=== PATIENT | female | born 1935 ===

== ENCOUNTER 2017-09-29 20:20 | Emergency (ER) | payer MEDICARE, MEDICAID ==
[2017-09-29 20:33] VITALS: BMI 21.5
[2017-09-29] MEDS ORDERED: Albuterol-Ipratrop 3 mg / 0.5 (3 ml) UD ONE ×3 (20:33→21:58)
[2017-09-29 20:35] VITALS: TEMP 97.8
[2017-09-29] MEDS ORDERED: Albuterol-Ipratrop 3 mg / 0.5 (3 ml) UD INH STA ×3 (20:36→21:29)
--- NOTE | 2017-09-29 20:59 | ED PDOC ---
HPI: SOB/CHF/COPD <Anabela Ruano - Last Filed: 09/29/17 23:37> History Per: Patient, Family (Son and Daughter) History/Exam Limitations: language barrier (south korean) Onset/Duration Of Symptoms: Days (2) Current Symptoms Are (Timing): Still Present Initiating Event: Exercising/Sports (Walking outdoors) Quality: Tightness Exacerbating Factor(s): Coughing Severity: Moderate Associated Symptoms: Productive Cough Additional History Per: Family <Shawn Shearer - Last Filed: 09/29/17 23:52> Time Seen by Provider: 09/29/17 20:31 Chief Complaint (Nursing): Respiratory Distress Additional Complaint(s): Ms. Beck is a pleasant 82 yo lady with pmhx of asthma, htn, and multiple bouts of pna and bronchitis presents to the ED with asthma exacerbation. Per her son and daughter, she has been coughing with SOB for the past 2 days. However, today her symptoms have not improved after 3 nebulized albuterol treatments. Treatments were given at 9 am, 12 noon and 3 pm. Cough with brown sputum production noted. No recent illness or fevers. She denies nausea, vomiting or chest pain. PCP: [facility] Dr. Oscar PmHx: Asthma, htn, dementia, hypothyroid, pna, bronchitis Surg: none FamHx: DM NKDA: (Shawn Shearer) Supervising Attending Note - Supervising Attending Note The Documented history was done by the: Physician Construction Job Titles, Attending Physician The documented physical exam was done by the: Physician Construction Job Titles, Attending Physician The documented procedures were done by the: Physician Construction Job Titles, Attending Physician - Attestation: I have personally seen and examined this patient.: Yes I have fully participated in the care of the patient.: Yes I have reviewed all pertinent clinical information, including history, physical exam and plan: Yes <Anabela Ruano - Last Filed: 09/29/17 23:37> Past Medical History <Anabela Ruano - Last Filed: 09/29/17 23:37> - Medical History PMH: Asthma, Bronchitis, Dementia, Depression, HTN, Hypercholesterolemia, Hypothyroidism, Parkinson's Disease, Pneumonia Denies: Atrial Fibrillation, CAD, Cardia Arrhythmia, CHF, HIV, Mitral Valve Prolapse, Peripheral Edema, Chronic Kidney Disease - Surgical History Surgical History: Denies: Pacemaker - Family History Family History: States: Unknown Family Hx - Immunization History Hx Tetanus Toxoid Vaccination: No Hx Influenza Vaccination: No Hx Pneumococcal Vaccination: No <Bill Shearerang - Last Filed: 09/29/17 23:52> Vital Signs: Last Vital Signs Temp 97.8 F 09/29/17 20:32 Pulse 69 09/29/17 23:19 Resp 18 09/29/17 23:19 BP 109/59 L 09/29/17 23:19 Pulse Ox 95 09/29/17 23:19 - Home Medications Home Medications: Ambulatory Orders Medication Instructions Recorded Albuterol 0.083% [Albuterol 0.083% 3 ml IH Q4H PRN 10/19/16 Inhal Nely (2.5 mg/3 ml) UD] Albuterol Sulfate [Proair Hfa] 2 puff IH Q4H PRN 10/19/16 Atorvastatin [Lipitor] 20 mg PO DAILY 10/19/16 Donepezil [Aricept] 10 mg PO DAILY 10/19/16 Fluticasone/Salmeterol 100/50 1 puff IH Q12H 10/19/16 [Advair Diskus 100/50] Levothyroxine [Synthroid] 100 mcg PO DAILY 10/19/16 Metoprolol Succinate [Toprol XL] 25 mg PO DAILY #30 tab 10/27/16 QUEtiapine [Seroquel] 12.5 mg PO TID PRN #10 tab 10/27/16 predniSONE [predniSONE Tab] 60 mg PO DAILY 5 Days #5 tab 09/29/17 - Allergies Allergies/Adverse Reactions: Allergies Allergy/AdvReac Type Severity Reaction Status Date / Time No Known Allergies Allergy Verified 10/24/16 16:35 Curb-65 Severity Score - CURB-65 Severity Score Confusion: Yes Respiratory Rate greater than/equal to 30: No Systolic BP <90 or Diastolic BP less than/equal 60mmHg: No Age >64: Yes Curb-65 Score: 2 Percentage 30-day mortality: 6.8% <Shawn Shearer - Last Filed: 09/29/17 23:52> Review of Systems ROS Statement: Except As Marked, All Systems Reviewed And Found Negative Respiratory: Positive for: Cough, Shortness of Breath, SOB with Exertion, Sputum <Bill Shearerang - Last Filed: 09/29/17 23:52> Physical Exam - Physical Exam Appears: Positive for: Uncomfortable, In Acute Distress Skin: Positive for: Warm, Dry Eye Exam: Positive for: EOMI. Negative for: Nystagmus ENT: Positive for: Pharynx Is Cardiovascular/Chest: Positive for: Regular Rate, Rhythm, Chest Non Tender. Negative for: JVD Respiratory: Positive for: Decreased Breath Sounds, Accessory Muscle Use, Crackles (on all lung barba), Wheezing (expiratory on all lung barba), Respiratory Distress Gastrointestinal/Abdominal: Positive for: Bowel Sounds, Soft. Negative for: Tenderness Neurologic/Psych: Positive for: Alert. Negative for: Aphasia <Shawn Shearer - Last Filed: 09/29/17 23:52> - Laboratory Results Result Diagrams: 09/29/17 21:26 09/29/17 21:26 <Anabela Ruano - Last Filed: 09/29/17 23:37> - Laboratory Results Result Diagrams: 09/29/17 21:26 09/29/17 21:26 - ECG ECG: Positive for: Viewed By Me ECG Rhythm: Positive for: Normal QRS, Normal ST Segment, Sinus Rhythm Interpretation Of Abn EKG: Rate 69 bpm. light L Ventricular hypertrophy oberved in Leads V4-6 Rate: 69 O2 Sat by Pulse Oximetry: 91 <Shawn Shearer - Last Filed: 09/29/17 23:52> - ECG Interpretation Of Abnormal: slight hypoxia (Shawn Shearer) - Progress ED Course And Treament: L lower lobe consolidation noted on CXR: Ordered CT chest and BNP (Shawn Shearer) Nebulizer Treatments/Peak Flow - Steroid Treatment Steroid: IV - Clinical Response Clinical Response: Improved <Shawn Shearer - Last Filed: 09/29/17 23:52> Disposition <Anabela Ruano - Last Filed: 09/29/17 23:37> - Patient ED Disposition Is Patient to be Admitted: No Discussed With : Anabela Ruano Comment: O2 sat on RA while at rest was 97% after ambulating, 91%. DC home with po prednisone 60 mg qd x 5 days. Continue with nebulized abuterol, pump, and advair disc as prescribed. - Disposition Disposition Time: 23:45 <Shawn Shearer - Last Filed: 09/29/17 23:52> - Clinical Impression Clinical Impression: Asthma exacerbation - Disposition Condition: STABLE Prescriptions: predniSONE [predniSONE Tab] 60 mg PO DAILY 5 Days #5 tab Forms: [employer] (Nicaraguan)
[2017-09-29 21:32] LABS: BASO # 0.1 K/uL (0.0-0.2); EOS # 0.6 K/uL (0.0-0.7); EOS % 8.4 % (0.0-4.0); HEMOGLOBIN 12.5 g/dL (12.0-16.0); LYMPH # 1.4 K/uL (1.0-4.3); LYMPH % 20.6 % (20.0-40.0); MEAN CELL VOLUME 83.3 fl (81.0-99.0); MEAN CORPUSCULAR HGB CONC 32.4 g/dL (33.0-37.0); MONO # 0.5 K/uL (0.0-0.8); MONO % 7.5 % (0.0-10.0); NEUT # 4.2 K/uL (1.8-7.0); NEUT % 62.5 % (50.0-75.0); NRBC % 0.1 % (0.0-0.0); RBC 4.64 Mil/uL (3.80-5.20); RED CELL DISTRIBUTION WIDTH 13.9 % (11.5-14.5); WHITE BLOOD COUNT 6.7 K/uL (4.8-10.8)
[2017-09-29 21:42] LABS: BLOOD UREA NITROGEN 17 mg/dl (7-17); CALCIUM 9.2 mg/dL (8.4-10.2); GFR AFRICAN-AMERICAN > 60; GFR NON-AFRICAN AMERICAN > 60
[2017-09-29 22:08] VITALS: PULSE 69
--- NOTE | 2017-09-29 23:13 | CT ---
EXAM: CT Chest Without Intravenous Contrast EXAM DATE/TIME: 09/29/2017 9:53 PM CLINICAL HISTORY: 82 years old, female; Signs and symptoms; Dyspnea; Additional info: Dyspnea pleral effusion TECHNIQUE: Axial computed tomography images of the chest without intravenous contrast. All CT scans at this facility use one or more dose reduction techniques, viz.: automated exposure control; ma/kV adjustment per patient size (including targeted exams where dose is matched to indication; i.e. head); or iterative reconstruction technique. Coronal and sagittal reformatted images were created and reviewed. COMPARISON: There are no prior studies for comparison. FINDINGS: Artifacts: Motion artifact degrades image quality. Lungs and pleural spaces: Trachea and main bronchi are patent.There is no pneumothorax. Lungs are mildly hyperinflated. There is focal scarring in the middle lobe and lingula. There is atelectasis and scarring at both lung bases. There are no effusions. Heart and vasculature: The heart is mildly enlarged. There are coronary artery calcifications. There is no pericardial effusion. Aorta is normal in caliber. There are calcifications in the aortic wall. Main pulmonary artery is mildly dilated 3.5 cm in diameter. Mediastinum: The esophagus is unremarkable. There is a small hiatal hernia. There are shotty mediastinal nodes.Shelby are not optimally evaluated without contrast material. Thyroid: Thyroid is not optimally demonstrated. Bones/joints: Bony structures are osteopenic with degenerative change Soft tissues: unremarkable Upper abdomen: There are no acute abnormalities in the visualized portion of the abdomen. Gallbladder is absent. IMPRESSION: Mild cardiomegaly and atherosclerotic disease; atelectasis/scarring at the lung bases, no focal consolidation, no effusions
[2017-09-29 23:20] VITALS: BP 109/59
[2017-09-30 00:08] VITALS: RESP 20; O2SAT 97
--- NOTE | 2017-09-30 10:38 | CARD ---
APPROVED REPORT EKG Measurement Heart [id number] <Conclusion> Normal sinus rhythm Left axis deviation Abnormal ECG
--- NOTE | 2017-09-30 13:47 | RAD ---
PROCEDURE: CHEST RADIOGRAPH, 1 VIEW HISTORY: asthma exacerbation COMPARISON: 10/24/2016 FINDINGS: LUNGS: Linear scar/atelectasis at left base. No infiltrate. PLEURA: No pneumothorax or pleural fluid seen. CARDIOVASCULAR: Normal. OSSEOUS STRUCTURES: No significant abnormalities. VISUALIZED UPPER ABDOMEN: Normal. OTHER FINDINGS: None. IMPRESSION: No active disease.
== END 2017-09-30 00:08 | disposition home or self-care (01) ==
LOC: H.ER 20:20
DX: J45.901 Unspecified asthma with (acute) exacerbation (principal); E03.9 Hypothyroidism, unspecified; E78.00 Pure hypercholesterolemia, unspecified; F03.90 Unspecified dementia, unspecified severity, without behavioral disturbance, psychotic disturbance, mood disturbance, and anxiety; F32.9 Major depressive disorder, single episode, unspecified; I10 Essential (primary) hypertension; J44.9 Chronic obstructive pulmonary disease, unspecified
CPT/HCPCS: 71010; 71250; 80048; 83880; 85025; 93005; 94640; 96374; 99283; J2930

== ENCOUNTER 2017-10-14 11:34 | Emergency (ER) | payer MEDICARE, MEDICAID ==
[2017-10-14 11:35] VITALS: BMI 21.5
[2017-10-14 11:51] VITALS: BP 98/55; PULSE 72; RESP 16; TEMP 98.4
[2017-10-14] MEDS ORDERED: Albuterol-Ipratrop 3 mg / 0.5 (3 ml) UD IH STA ×2 (12:00→12:01)
--- NOTE | 2017-10-14 12:04 | ED PDOC ---
HPI: SOB/CHF/COPD Time Seen by Provider: 10/14/17 11:53 Chief Complaint (Nursing): Cough, Cold, Congestion History Per: Family Onset/Duration Of Symptoms: Days (2) Current Respiratory Medications: See Home Med List Severity: Mild Associated Symptoms: Fever Additional Complaint(s): SOB and cough productive green sputum since last night. Subjective fever. Tx'ed with Nebs. Past Medical History Vital Signs: Last Vital Signs Temp 98.4 F 10/14/17 11:39 Pulse 72 10/14/17 11:39 Resp 16 10/14/17 11:39 BP 98/55 L 10/14/17 11:39 Pulse Ox 92 L 10/14/17 12:04 - Medical History PMH: Asthma, Bronchitis, Dementia, Depression, HTN, Hypercholesterolemia, Hypothyroidism, Parkinson's Disease, Pneumonia Denies: Atrial Fibrillation, CAD, Cardia Arrhythmia, CHF, HIV, Mitral Valve Prolapse, Peripheral Edema, Chronic Kidney Disease - Surgical History Surgical History: Denies: Pacemaker - Family History Family History: States: Unknown Family Hx - Immunization History Hx Tetanus Toxoid Vaccination: No Hx Influenza Vaccination: No Hx Pneumococcal Vaccination: No - Home Medications Home Medications: Ambulatory Orders Medication Instructions Recorded Albuterol 0.083% [Albuterol 0.083% 3 ml IH Q4H PRN 10/19/16 Inhal Nely (2.5 mg/3 ml) UD] Albuterol Sulfate [Proair Hfa] 2 puff IH Q4H PRN 10/19/16 Atorvastatin [Lipitor] 20 mg PO DAILY 10/19/16 Donepezil [Aricept] 10 mg PO DAILY 10/19/16 Fluticasone/Salmeterol 100/50 1 puff IH Q12H 10/19/16 [Advair Diskus 100/50] Levothyroxine [Synthroid] 100 mcg PO DAILY 10/19/16 Metoprolol Succinate [Toprol XL] 25 mg PO DAILY #30 tab 10/27/16 QUEtiapine [Seroquel] 12.5 mg PO TID PRN #10 tab 10/27/16 Azithromycin [Zithromax] 250 mg PO DAILY #6 tab 10/14/17 Ipratropium 0.02% [Atrovent] 2.5 ml IH Q12 #1 neb 10/14/17 Omeprazole 20 mg PO DAILY 10/14/17 amLODIPine [Norvasc] 5 mg PO DAILY 10/14/17 predniSONE [predniSONE Tab] 10 mg PO TID #15 tab 10/14/17 - Allergies Allergies/Adverse Reactions: Allergies Allergy/AdvReac Type Severity Reaction Status Date / Time No Known Allergies Allergy Verified 10/14/17 12:28 Review of Systems ROS Statement: Except As Marked, All Systems Reviewed And Found Negative Respiratory: Positive for: Cough, Shortness of Breath, Sputum, Wheezing Physical Exam - Reviewed Nursing Documentation Reviewed: Yes Vital Signs Reviewed: Yes - Physical Exam Appears: Positive for: Non-toxic, No Acute Distress Head Exam: Positive for: ATRAUMATIC, NORMAL INSPECTION, NORMOCEPHALIC Skin: Positive for: Normal Color, Warm, DRY Eye Exam: Positive for: EOMI, Normal appearance, PERRL ENT: Positive for: Normal ENT Inspection Neck: Positive for: Normal, Painless ROM Cardiovascular/Chest: Positive for: Regular Rate, Rhythm Respiratory: Positive for: Decreased Breath Sounds, Wheezing. Negative for: Respiratory Distress Gastrointestinal/Abdominal: Positive for: Normal Exam, Bowel Sounds, Soft Back: Positive for: Normal Inspection Extremity: Positive for: Normal ROM Neurologic/Psych: Positive for: Alert. Negative for: Motor/Sensory Deficits - ECG O2 Sat by Pulse Oximetry: 92 - Progress Re-evaluation Time: 13:41 Condition: Improved Disposition - Clinical Impression Clinical Impression: Bronchitis, Exacerbation of asthma - Patient ED Disposition Is Patient to be Admitted: No Counseled Patient/Family Regarding: Studies Performed, Diagnosis, Need For Followup, Rx Given - Disposition Referrals: [facility] [Outside] Disposition: Routine/Home Disposition Time: 13:42 Condition: FAIR Prescriptions: Azithromycin [Zithromax] 250 mg PO DAILY #6 tab Ipratropium 0.02% [Atrovent] 2.5 ml IH Q12 #1 neb predniSONE [predniSONE Tab] 10 mg PO TID #15 tab Instructions: Acute Bronchitis (ED), Bronchospasm (ED) Forms: [facility] (Occitan) Print Language: BURMESE
[2017-10-14 13:55] VITALS: O2SAT 95
--- NOTE | 2017-10-14 14:24 | RAD ---
HISTORY: cough COMPARISON: Chest radiograph dated 09/29/2017. TECHNIQUE: Chest PA and lateral FINDINGS: LUNGS: No active pulmonary disease. PLEURA: No significant pleural effusion identified. No pneumothorax apparent. CARDIOVASCULAR: Atherosclerotic aortic calcifications. Cardiomediastinal silhouette within normal limits. OSSEOUS STRUCTURES: Unchanged. VISUALIZED UPPER ABDOMEN: Normal. OTHER FINDINGS: None. IMPRESSION: No active disease.
== END 2017-10-14 13:54 | disposition home or self-care (01) ==
LOC: H.ER 11:34
DX: J45.901 Unspecified asthma with (acute) exacerbation (principal); J40 Bronchitis, not specified as acute or chronic; E78.00 Pure hypercholesterolemia, unspecified; E03.9 Hypothyroidism, unspecified; F03.90 Unspecified dementia, unspecified severity, without behavioral disturbance, psychotic disturbance, mood disturbance, and anxiety; F32.9 Major depressive disorder, single episode, unspecified; I10 Essential (primary) hypertension; J44.9 Chronic obstructive pulmonary disease, unspecified
CPT/HCPCS: 71046; 94640; 96374; 99283; J2930

== ENCOUNTER 2019-01-13 13:40 | Inpatient (IN) | payer MEDICARE, MEDICAID ==
[2019-01-13 13:40] VITALS: BMI 21.5
[2019-01-13] MEDS ORDERED: Albuterol-Ipratrop 3 mg / 0.5 (3 ml) UD IH STA ×2 (14:03→15:36)
--- NOTE | 2019-01-13 14:08 | ED PDOC ---
HPI: SOB/CHF/COPD Time Seen by Provider: 01/13/19 13:56 Chief Complaint (Nursing): Shortness Of Breath History Per: EMS Onset/Duration Of Symptoms: Unknown Current Symptoms Are (Timing): Still Present Additional Complaint(s): Brought by EMS from Adult Day care for SOB and congestion. Denies fever or chest pain. Received IV steroids en route. Past Medical History Vital Signs: Last Vital Signs Temp Pulse Resp 20 01/13/19 13:53 BP Pulse Ox 97 01/13/19 13:53 - Medical History PMH: Asthma, Bronchitis, Dementia, Depression, HTN, Hypercholesterolemia, Hypothyroidism, Parkinson's Disease, Pneumonia Denies: Atrial Fibrillation, CAD, Cardia Arrhythmia, CHF, HIV, Mitral Valve Prolapse, Peripheral Edema, Chronic Kidney Disease - Surgical History Surgical History: Denies: Pacemaker - Family History Family History: States: Unknown Family Hx - Immunization History Hx Tetanus Toxoid Vaccination: No Hx Influenza Vaccination: No Hx Pneumococcal Vaccination: No - Home Medications Home Medications: Ambulatory Orders Medication Instructions Recorded Albuterol 0.083% [Albuterol 0.083% 3 ml IH Q4H PRN 10/19/16 Inhal Nely (2.5 mg/3 ml) UD] Albuterol Sulfate [Proair Hfa] 2 puff IH Q4H PRN 10/19/16 Atorvastatin [Lipitor] 20 mg PO DAILY 10/19/16 Donepezil [Aricept] 10 mg PO DAILY 10/19/16 Fluticasone/Salmeterol 100/50 1 puff IH Q12H 10/19/16 [Advair Diskus 100/50] Levothyroxine [Synthroid] 100 mcg PO DAILY 10/19/16 Metoprolol Succinate XL [Toprol XL] 25 mg PO DAILY #30 tab 10/27/16 QUEtiapine [Seroquel] 12.5 mg PO TID PRN #10 tab 10/27/16 Azithromycin [Zithromax] 250 mg PO DAILY #6 tab 10/14/17 Ipratropium 0.02% [Atrovent] 2.5 ml IH Q12 #1 neb 10/14/17 Omeprazole 20 mg PO DAILY 10/14/17 amLODIPine [Norvasc] 5 mg PO DAILY 10/14/17 predniSONE [predniSONE Tab] 10 mg PO TID #15 tab 10/14/17 - Allergies Allergies/Adverse Reactions: Allergies Allergy/AdvReac Type Severity Reaction Status Date / Time No Known Allergies Allergy Verified 01/13/19 13:44 Review of Systems ROS Statement: Except As Marked, All Systems Reviewed And Found Negative Respiratory: Positive for: Shortness of Breath Physical Exam - Reviewed Nursing Documentation Reviewed: Yes Vital Signs Reviewed: Yes - Physical Exam Appears: Positive for: Non-toxic, No Acute Distress Head Exam: Positive for: ATRAUMATIC, NORMAL INSPECTION, NORMOCEPHALIC Skin: Positive for: Normal Color, Warm, DRY Eye Exam: Positive for: EOMI, Normal appearance, PERRL ENT: Positive for: Normal ENT Inspection Neck: Positive for: Normal, Painless ROM Cardiovascular/Chest: Positive for: Regular Rate, Rhythm Respiratory: Positive for: Rhonchi, Wheezing. Negative for: Respiratory Distress Gastrointestinal/Abdominal: Positive for: Normal Exam, Soft Back: Positive for: Normal Inspection Extremity: Positive for: Normal ROM Neurological/Psych: Positive for: Awake, Alert, Normal Tone - ECG O2 Sat by Pulse Oximetry: 97 Disposition - Clinical Impression Clinical Impression: COPD (chronic obstructive pulmonary disease) - Patient ED Disposition Is Patient to be Admitted: Yes - Disposition Disposition Time: 15:40 Condition: FAIR Forms: [employer] (Kazakh) - Pt Status Changed To: Hospital Disposition Of: Observation - POA Present On Arrival: None
[2019-01-13] MEDS ORDERED: Albuterol-Ipratrop 3 mg / 0.5 (3 ml) UD ONE ×2 (14:59→16:05)
--- NOTE | 2019-01-13 15:37 | CP.PCM.HP ---
History of Present Illness - History of Present Illness History of Present Illness: History obtained from patient's hospice patient care secretary & previous notes 83 y/o F with pmhx of dementia, hypercholesterolemia, COPD, unspecified, hy pothyroidism, agitation & HTN was brought into the ED because of sob. As per the caregiver, the patient was at her day program when she noticed that Emma began breathing quickly. She endorses that the patient's oxygen saturation was checked and reported as low. Patient was then taken to ED and given IV steroids. PMH: dementia, hypercholesterolemia, COPD, unspecified, hypothyroidism, agitation & HTN Meds: metoprolol, amlodipine, levothyroxine, seroquel, advair, albuterol, atorvastatin, memantin, divalproex, donepezil Allergies: NKA Surghx: denies Famhx: noncontributory Sochx: denies etoh, elicit or cigarettes use ROS: unable to obtain bc patient has dementia ED course: VS: spo2-95% on room air BP- -s/p 2 doses of duonebs & 125 mg IV methylprednisolone in field ; EKG: NSR @ 75bpm -CMP: unremarkable (creatinine: 0.8), troponin & cbc- wbc 13.3 CXR- borderline disease midline right bases. Remaining lung barba clear. Present on Admission - Present on Admission Any Indicators Present on Admission: No Past Patient History - Infectious Disease Hx of Infectious Diseases: None - Tetanus Immunizations Tetanus Immunization: Unknown - Past Medical History & Family History Past Medical History?: Yes - Past Social History Smoking Status: Never Smoked - CARDIAC Hx Atrial Fibrillation: No Hx Cardia Arrhythmia: No Hx Congestive Heart Failure: No Hx Hypercholesterolemia: Yes Hx Hypertension: Yes Hx Mitral Valve Prolapse: No Hx Pacemaker: No Hx Peripheral Edema: No - PULMONARY Hx Asthma: Yes Hx Bronchitis: Yes Hx Pneumonia: Yes - NEUROLOGICAL Hx Dementia: Yes Hx Parkinson's Disease: Yes - HEENT Hx HEENT Problems: No - RENAL Hx Chronic Kidney Disease: No - ENDOCRINE/METABOLIC Hx Hypothyroidism: Yes - HEMATOLOGICAL/ONCOLOGICAL Hx Human Immunodeficiency Virus (HIV): No - INTEGUMENTARY Hx Dermatological Problems: No - MUSCULOSKELETAL/RHEUMATOLOGICAL Hx Musculoskeletal Disorders: No Hx Falls: No - GASTROINTESTINAL Hx Gastrointestinal Disorders: No - GENITOURINARY/GYNECOLOGICAL Hx Genitourinary Disorders: No - PSYCHIATRIC Hx Depression: Yes - SURGICAL HISTORY Hx Surgeries: Yes Hx Tubal Ligation: Yes - ANESTHESIA Hx Anesthesia: Yes Hx Anesthesia Reactions: No Hx Malignant Hyperthermia: No Meds Allergies/Adverse Reactions: Allergies Allergy/AdvReac Type Severity Reaction Status Date / Time No Known Allergies Allergy Verified 01/13/19 13:44 Physical Exam - Constitutional Additional comments: intermittent sneezing - Eye Exam Pupil Exam: PERRL - ENT Exam ENT Exam: Mucous Membranes Moist - Respiratory Exam Respiratory Exam: Rhonchi. absent: Rales, Respiratory Distress - Cardiovascular Exam Cardiovascular Exam: REGULAR RHYTHM, +S1, +S2 - GI/Abdominal Exam GI & Abdominal Exam: Normal Bowel Sounds, Soft. absent: Guarding, Rigid, Tenderness - Extremities Exam Extremities exam: Positive for: pedal pulses present. Negative for: calf tenderness - Neurological Exam Neurological exam: Alert - Psychiatric Exam Psychiatric exam: Agitated - Skin Skin Exam: Dry Results - Vital Signs Recent Vital Signs: Last Vital Signs Temp Pulse Resp 20 01/13/19 13:53 BP Pulse Ox 97 01/13/19 14:09 - Labs Result Diagrams: 01/13/19 15:35 01/13/19 15:35 Assessment & Plan - Assessment and Plan (Free Text) Assessment: 83 y/o F with pmhx of dementia, hypercholesterolemia, COPD, unspecified, hypothyroidism, agitation & HTN was brought into the ED because of sob. sob ( possibly due to mild COPD exacerbation) -s/p 125mg methylprednisolone IV in the field -CXR: neg for any infiltrate; first troponin neg -fu /3rd troponin -duoneb Q3 -methylprednisolone 60mg IV QD tomorrw; continue with daily taper -Advair 100-50mg 1 puff BID hx of COPD with possible mild exacerbation -see above HTN -metoprolol 50mg po QD -norvasc 5mg PO QD Hypothyroidism -FU TSH -levothyroxine 112mcg QD Hypercholesterolemia -Atorvastain 20mg PO QD Dementia -memantine 5mg pO HS -Divalproex 250mg PO -donepezil 10mg PO HS Agitaton -FU psych consult -Seroquel 25mg PO BID -Note that patient has only been getting BID because as per caregiver, day care facility cannot administer meds -Consider changing to TID (which she should be taking )as per ECW note
[2019-01-13 16:04] LABS: ALB/GLOB RATIO 1.2 (1.0-2.1); ALBUMIN 4.4 g/dL (3.5-5.0); ALT/SGPT 14 U/L (9-52); AST/SGOT 22 U/L (14-36); BLOOD UREA NITROGEN 17 mg/dl (7-17); CALCIUM 9.2 mg/dL (8.4-10.2); GFR NON-AFRICAN AMERICAN > 60
[2019-01-13 16:08] LABS: BASO % 0.4 % (0.0-2.0); EOS # 0.2 K/uL (0.0-0.7); EOS % 1.6 % (0.0-4.0); HEMOGLOBIN 13.9 g/dL (12.0-16.0); LYMPH % 7.2 % (20.0-40.0); MEAN CELL VOLUME 84.9 fl (81.0-99.0); MEAN CORPUSCULAR HEMOGLOBIN 27.1 pg (27.0-31.0); MEAN PLATELET VOLUME 7.5 fl (7.2-11.7); MONO # 0.3 K/uL (0.0-0.8); MONO % 2.2 % (0.0-10.0); NEUT # 11.8 K/uL (1.8-7.0); NEUT % 88.6 % (50.0-75.0); PLATELET COUNT 264 K/uL (130-400); RBC 5.11 Mil/uL (3.80-5.20); RED CELL DISTRIBUTION WIDTH 15.1 % (11.5-14.5); WHITE BLOOD COUNT 13.3 K/uL (4.8-10.8)
--- NOTE | 2019-01-13 16:42 | RAD ---
Date of service: 01/13/2019 HISTORY: cough COMPARISON: Chest radiographs 10/14/2017. TECHNIQUE: 1 view obtained. FINDINGS: LUNGS: Trace patchy density questioned at the mid right base in the interval. Remaining lung barba clear. PLEURA: No significant pleural effusion identified, no pneumothorax apparent. CARDIOVASCULAR: Calcific atherosclerotic changes are seen related to the thoracic aorta. Normal cardiac size. No pulmonary vascular congestion. OSSEOUS STRUCTURES: No significant abnormalities. VISUALIZED UPPER ABDOMEN: Normal. OTHER FINDINGS: None. IMPRESSION: Borderline airspace disease midline right base. Remaining lung barba clear. No pulmonary vascular congestion or pleural effusion. No pneumothorax bilaterally.
[2019-01-13 17:22] LABS: BANDS 4 % (0-2); EOSINOPHIL 3 % (0-7); LYMPHOCYTE 8 % (20-50); MONOCYTE 6 % (0-10); NEUTROPHIL 79 % (42-75); TOTAL CELLS COUNTED 100
[2019-01-13 17:23] LABS: HYPOCHROMIC SLIGHT; PLATELET ESTIMATE NORMAL (NORMAL); TOXIC GRANULATION PRESENT
[2019-01-13] MEDS: Albuterol-Ipratrop 3 mg / 0.5 (3 ml) UD INH SCH ×3 (18:16→23:59)
--- NOTE | 2019-01-13 19:17 | CARD ---
APPROVED REPORT Date of service: 01/13/2019 EKG Measurement Heart [id number] <Conclusion> Normal sinus rhythm Left axis deviation Incomplete right bundle branch block Abnormal ECG
[2019-01-13] MEDS ORDERED: Fluticasone-Salmeterol 100-50mcg Diskus IH SCH (21:00)
[2019-01-13] MEDS ORDERED: FLUTICASONE PROPION/SALMETEROL 113-14 IH SCH (23:00)
[2019-01-14] MEDS: FLUTICASONE PROPION/SALMETEROL 55-14 INHALER IH SCH ×3 (00:25→21:20)
[2019-01-14] MEDS: Albuterol-Ipratrop 3 mg / 0.5 (3 ml) UD INH SCH ×5 (05:02→19:50)
[2019-01-14] MEDS: Levothyroxine 112 MCG TAB PO SCH (06:38)
[2019-01-14] MEDS ORDERED: methylPREDNISolone 60 MG in Sodium Chloride 0.9% 50 ML IV SCH (09:00)
[2019-01-14] MEDS ORDERED: Divalproex 250 mg ER (ONCE DAILY formulation) PO SCH (09:00)
[2019-01-14] MEDS: Enoxaparin 40 mg Syringe SC SCH (09:49)
[2019-01-14] MEDS: Metoprolol Succinate 50 mg XL Tab PO SCH (09:51)
--- NOTE | 2019-01-14 10:07 | CP.PCM.PN ---
Subjective - Date & Time of Evaluation Date of Evaluation: 01/14/19 Time of Evaluation: 10:07 - Subjective Subjective: pt seen and evaluated at bedside. Overnight events reviewed. Remained agitated, given 2 doses of 0.25mg Ativan and placed on 1:1. Tolerating neb treatments w/o issue. Slept rest of the night. Objective - Vital Signs/Intake and Output Vital Signs (last 24 hours): Temp Pulse Resp BP Pulse Ox 97.5 F L 69 18 149/74 98 01/14/19 00:13 01/14/19 09:51 01/14/19 03:50 01/14/19 09:51 01/14/19 00:13 - Medications Medications: Current Medications Albuterol/Ipratropium (Duoneb 3 Mg/0.5 Mg (3 Ml) Ud) 3 ml INH RQ4 [facility] Last Admin: 01/14/19 08:21 Dose: 3 ml Amlodipine Besylate (Norvasc) 5 mg PO DAILY [facility] Last Admin: 01/14/19 09:49 Dose: 5 mg Atorvastatin Calcium (Lipitor) 20 mg PO DAILY [facility] Last Admin: 01/14/19 09:48 Dose: 20 mg Divalproex Sodium (Depakote Er(Once Daily)) 250 mg PO DAILY [facility] Last Admin: 01/14/19 09:48 Dose: 250 mg Donepezil HCl (Aricept) 10 mg PO HS [facility] Last Admin: 01/14/19 00:20 Dose: 10 mg Enoxaparin Sodium (Lovenox) 40 mg SC DAILY [facility]; Protocol Last Admin: 01/14/19 09:49 Dose: 40 mg Levothyroxine Sodium (Synthroid) 112 mcg PO DAILY@0630 [facility] Last Admin: 01/14/19 06:38 Dose: Not Given Memantine (Namenda) 5 mg PO HS [facility] Last Admin: 01/14/19 00:21 Dose: 5 mg Methylprednisolone (Solu-Medrol) 60 mg IV DAILY [facility] Metoprolol Succinate (Toprol Xl) 50 mg PO DAILY [facility] Last Admin: 01/14/19 09:51 Dose: 50 mg Pantoprazole Sodium (Protonix Ec Tab) 40 mg PO DAILY PRN PRN Reason: Heartburn Quetiapine Fumarate (Seroquel) 25 mg PO Q12 [facility] Last Admin: 01/14/19 09:50 Dose: 25 mg - Labs Labs: 01/13/19 15:35 01/13/19 15:35 - Constitutional Appears: Non-toxic, No Acute Distress - Head Exam Head Exam: ATRAUMATIC - Eye Exam Eye Exam: EOMI, PERRL - ENT Exam ENT Exam: Mucous Membranes Moist Additional comments: adentulous - Respiratory Exam Respiratory Exam: Rhonchi, Wheezes, NORMAL BREATHING PATTERN. absent: Decreased Breath Sounds, Clear to Ausculation Bilateral, Prolonged Expiratory Phase, Rales, Respiratory Distress, Stridor - Cardiovascular Exam Cardiovascular Exam: REGULAR RHYTHM, RRR, +S1, +S2. absent: JVD, Murmur - GI/Abdominal Exam GI & Abdominal Exam: Soft. absent: Tenderness - Extremities Exam Extremities Exam: absent: Pedal Edema - Skin Skin Exam: Dry, Warm Assessment and Plan - Assessment and Plan (Free Text) Assessment: 83 y/o F with pmhx of dementia, hypercholesterolemia, COPD, unspecified, hypothyroidism, agitation & HTN admitted for COPD exacerbation. COPD exacerbation -s/p 125mg methylprednisolone IV in the field -CXR: possible right midlung finding, otherwise unremarkable, no pneumothroax or effusion -duoneb Q4 -methylprednisolone 60mg BID -Advair 100-50mg 1 puff BID -maintain POX 92% Agitation -possibly secondary to COPD exacerbation -FU psych consult -Seroquel 25mg PO BID, resume TID 01/15 -f/u TSH -hold ativan, only for severe agitation -Note that patient has only been getting BID because as per caregiver, day care facility cannot administer meds HTN -controlled -metoprolol 50mg po QD -norvasc 5mg PO QD Hypothyroidism -FU TSH -levothyroxine 112mcg QD Hypercholesterolemia -Atorvastain 20mg PO QD Dementia -memantine 5mg pO HS -Divalproex 250mg PO -donepezil 10mg PO HS Prophylaxis -lovenox 40mg SC QD Diet -heart healthy Code Status -full code
[2019-01-14 15:16] LABS: BASO % 0.2 % (0.0-2.0); HEMOGLOBIN 12.3 g/dL (12.0-16.0); LYMPH # 0.4 K/uL (1.0-4.3); LYMPH % 2.8 % (20.0-40.0); MEAN CELL VOLUME 83.1 fl (81.0-99.0); MEAN CORPUSCULAR HEMOGLOBIN 27.3 pg (27.0-31.0); MEAN CORPUSCULAR HGB CONC 32.9 g/dL (33.0-37.0); MEAN PLATELET VOLUME 7.5 fl (7.2-11.7); MONO # 0.3 K/uL (0.0-0.8); MONO % 2.3 % (0.0-10.0); NEUT # 13.7 K/uL (1.8-7.0); NEUT % 94.7 % (50.0-75.0); NRBC % 0.1 % (0.0-0.0); PLATELET COUNT 267 K/uL (130-400); RBC 4.49 Mil/uL (3.80-5.20); RED CELL DISTRIBUTION WIDTH 14.7 % (11.5-14.5); WHITE BLOOD COUNT 14.4 K/uL (4.8-10.8)
--- NOTE | 2019-01-14 16:11 | CP.PCM.CON ---
History of Present Illness - History of Present Illness History of Present Illness: consult requested for episodes of agitation pt on evaluation twice has been sedated, unable to obtainn hx from her, hx obtained through chart review and staff members 83 y/o F with pmhx of dementia, hypercholesterolemia, COPD,, brought to ER for episode of difficulty breathing pt reportedly has been increasingly agitated, combative with care , possible delirium due to change of enviroment and also due to medical condition Past Patient History - Infectious Disease Hx of Infectious Diseases: None - Tetanus Immunizations Tetanus Immunization: Unknown - Past Medical History & Family History Past Medical History?: Yes - Past Social History Smoking Status: Unknown If Ever Smoked - CARDIAC Hx Cardiac Disorders: Yes Hx Atrial Fibrillation: No Hx Cardia Arrhythmia: No Hx Congestive Heart Failure: No Hx Hypercholesterolemia: Yes Hx Hypertension: Yes Hx Mitral Valve Prolapse: No Hx Pacemaker: No Hx Peripheral Edema: No - PULMONARY Hx Respiratory Disorders: Yes Hx Asthma: Yes Hx Bronchitis: Yes Hx Pneumonia: Yes - NEUROLOGICAL Hx Neurological Disorder: Yes Hx Dementia: Yes Hx Parkinson's Disease: Yes - HEENT Hx HEENT Problems: No - RENAL Hx Chronic Kidney Disease: No - ENDOCRINE/METABOLIC Hx Endocrine Disorders: Yes Hx Hypothyroidism: Yes - HEMATOLOGICAL/ONCOLOGICAL Hx Blood Disorders: No Hx Human Immunodeficiency Virus (HIV): No - INTEGUMENTARY Hx Dermatological Problems: No - MUSCULOSKELETAL/RHEUMATOLOGICAL Hx Musculoskeletal Disorders: No Hx Falls: No - GASTROINTESTINAL Hx Gastrointestinal Disorders: No - GENITOURINARY/GYNECOLOGICAL Hx Genitourinary Disorders: No - PSYCHIATRIC Hx Psychophysiologic Disorder: Yes Hx Depression: Yes Hx Substance Use: No - SURGICAL HISTORY Hx Surgeries: Yes Hx Tubal Ligation: Yes - ANESTHESIA Hx Anesthesia: Yes Hx Anesthesia Reactions: No Hx Malignant Hyperthermia: No Meds Allergies/Adverse Reactions: Allergies Allergy/AdvReac Type Severity Reaction Status Date / Time No Known Allergies Allergy Verified 01/13/19 13:44 - Medications Medications: Current Medications Albuterol/Ipratropium (Duoneb 3 Mg/0.5 Mg (3 Ml) Ud) 3 ml INH RQ4 [facility] Last Admin: 01/14/19 15:50 Dose: 3 ml Amlodipine Besylate (Norvasc) 5 mg PO DAILY [facility] Last Admin: 01/14/19 09:49 Dose: 5 mg Atorvastatin Calcium (Lipitor) 20 mg PO DAILY [facility] Last Admin: 01/14/19 09:48 Dose: 20 mg Divalproex Sodium (Depakote Er(Once Daily)) 250 mg PO DAILY [facility] Last Admin: 01/14/19 09:48 Dose: 250 mg Donepezil HCl (Aricept) 10 mg PO HS [facility] Last Admin: 01/14/19 00:20 Dose: 10 mg Enoxaparin Sodium (Lovenox) 40 mg SC DAILY [facility]; Protocol Last Admin: 01/14/19 09:49 Dose: 40 mg Levothyroxine Sodium (Synthroid) 112 mcg PO DAILY@0630 [facility] Last Admin: 01/14/19 06:38 Dose: Not Given Memantine (Namenda) 5 mg PO HS [facility] Last Admin: 01/14/19 00:21 Dose: 5 mg Methylprednisolone (Solu-Medrol) 60 mg IV BID [facility] Metoprolol Succinate (Toprol Xl) 50 mg PO DAILY [facility] Last Admin: 01/14/19 09:51 Dose: 50 mg Pantoprazole Sodium (Protonix Ec Tab) 40 mg PO DAILY PRN PRN Reason: Heartburn Quetiapine Fumarate (Seroquel) 25 mg PO Q12 [facility] Last Admin: 01/14/19 09:50 Dose: 25 mg Results - Vital Signs Recent Vital Signs: Last Vital Signs Temp 97.6 F 01/14/19 15:55 Pulse 75 01/14/19 15:55 Resp 18 01/14/19 15:55 BP 118/63 01/14/19 15:55 Pulse Ox 95 01/14/19 15:55 - Labs Result Diagrams: 01/14/19 14:35 01/13/19 15:35 Labs: Laboratory Results - last 24 hr 01/13/19 01/13/19 01/14/19 15:35 15:35 14:35 WBC 13.3 H D 14.4 H RBC 5.11 4.49 Hgb 13.9 12.3 Hct 43.4 37.3 MCV 84.9 83.1 MCH 27.1 27.3 MCHC 32.0 L 32.9 L RDW 15.1 H 14.7 H Plt Count 264 267 MPV 7.5 7.5 Neut % (Auto) 88.6 H 94.7 H Lymph % (Auto) 7.2 L 2.8 L [place] % (Auto) 2.2 2.3 Eos % (Auto) 1.6 0.0 Baso % (Auto) 0.4 0.2 Neut # (Auto) 11.8 H 13.7 H Lymph # (Auto) 1.0 0.4 L [place] # (Auto) 0.3 0.3 Eos # (Auto) 0.2 0.0 Baso # (Auto) 0.0 0.0 Neutrophils % (Manual) 79 H Band Neutrophils % 4 H Lymphocytes % (Manual) 8 L Monocytes % (Manual) 6 Eosinophils % (Manual) 3 Toxic Granulation Present Platelet Estimate Normal Hypochromasia (manual) Slight Troponin I < 0.0120 Free T4 TSH 3rd Generation 01/14/19 01/14/19 01/14/19 14:35 14:35 14:35 WBC RBC Hgb Hct MCV MCH MCHC RDW Plt Count MPV Neut % (Auto) Lymph % (Auto) [place] % (Auto) Eos % (Auto) Baso % (Auto) Neut # (Auto) Lymph # (Auto) [place] # (Auto) Eos # (Auto) Baso # (Auto) Neutrophils % (Manual) Band Neutrophils % Lymphocytes % (Manual) Monocytes % (Manual) Eosinophils % (Manual) Toxic Granulation Platelet Estimate Hypochromasia (manual) Troponin I < 0.0120 Free T4 1.22 TSH 3rd Generation 5.12 H Assessment & Plan - Assessment and Plan (Free Text) Assessment: delirium, hyperactive major neurocognitive disorder Plan: recommend to discontinue depakote 2520mg daily and start depakote 125 mg tid seroquel 12.5mg po qhs haldol 0.25mg q12 prn for agitation avoid ativan for fall risks and possible paradoxical reaction
[2019-01-14 18:30] LABS: ANISOCYTOSIS SLIGHT; BANDS 3 % (0-2); HYPOCHROMIC SLIGHT; LYMPHOCYTE 7 % (20-50); MICROCYTOSIS SLIGHT; MONOCYTE 4 % (0-10); NEUTROPHIL 86 % (42-75); PLATELET ESTIMATE NORMAL (NORMAL); TOTAL CELLS COUNTED 100
[2019-01-15] MEDS: Albuterol-Ipratrop 3 mg / 0.5 (3 ml) UD INH SCH ×7 (00:35→23:51)
[2019-01-15 05:59] LABS: HEMOGLOBIN 12.8 g/dL (12.0-16.0); MEAN CELL VOLUME 83.7 fl (81.0-99.0); MEAN CORPUSCULAR HGB CONC 32.2 g/dL (33.0-37.0); RBC 4.75 Mil/uL (3.80-5.20); RED CELL DISTRIBUTION WIDTH 14.7 % (11.5-14.5); WHITE BLOOD COUNT 16.8 K/uL (4.8-10.8)
[2019-01-15 06:03] LABS: ALB/GLOB RATIO 1.2 (1.0-2.1); ALBUMIN 4.2 g/dL (3.5-5.0); ALT/SGPT 13 U/L (9-52); AST/SGOT 26 U/L (14-36); BLOOD UREA NITROGEN 32 mg/dl (7-17); CALCIUM 9.6 mg/dL (8.4-10.2); GFR NON-AFRICAN AMERICAN > 60
[2019-01-15] MEDS: Levothyroxine 112 MCG TAB PO SCH (06:43)
[2019-01-15] MEDS ORDERED: Divalproex 125 mg DR (BID formulation) PO SCH (09:00)
[2019-01-15] MEDS: Enoxaparin 40 mg Syringe SC SCH (09:03)
[2019-01-15] MEDS: Metoprolol Succinate 50 mg XL Tab PO SCH (09:03)
[2019-01-15] MEDS: Pantoprazole 40 mg EC Tab PO PRN (09:03)
[2019-01-15] MEDS: Divalproex 125 mg DR (BID formulation) PO SCH ×3 (09:04→17:27)
[2019-01-15] MEDS: FLUTICASONE PROPION/SALMETEROL 55-14 INHALER IH SCH ×2 (09:05→21:52)
--- NOTE | 2019-01-15 13:01 | CP.PCM.PN ---
Subjective - Date & Time of Evaluation Date of Evaluation: 01/15/19 Time of Evaluation: 12:20 - Subjective Subjective: Seen at bedside, slightly confused but mental status improved. States she feels less SOB. Afebrile. NO acute events overnight. Denies CP or palpitations. No cute changes in urination or stools. Patient with productive cough of whitish s putum. Objective - Vital Signs/Intake and Output Vital Signs (last 24 hours): Temp Pulse Resp BP Pulse Ox 98.0 F 88 20 134/76 92 L 01/15/19 12:00 01/15/19 12:00 01/15/19 12:00 01/15/19 12:00 01/15/19 12:00 - Medications Medications: Current Medications Albuterol/Ipratropium (Duoneb 3 Mg/0.5 Mg (3 Ml) Ud) 3 ml INH RQ4 [facility] Last Admin: 01/15/19 11:01 Dose: 3 ml Amlodipine Besylate (Norvasc) 5 mg PO DAILY [facility] Last Admin: 01/15/19 09:03 Dose: 5 mg Atorvastatin Calcium (Lipitor) 20 mg PO DAILY [facility] Last Admin: 01/15/19 09:03 Dose: 20 mg Divalproex Sodium (Depakote Dr(*Bid*)) 125 mg PO TID [facility] Last Admin: 01/15/19 12:48 Dose: 125 mg Donepezil HCl (Aricept) 10 mg PO HS [facility] Last Admin: 01/14/19 21:24 Dose: 10 mg Enoxaparin Sodium (Lovenox) 40 mg SC DAILY [facility]; Protocol Last Admin: 01/15/19 09:03 Dose: 40 mg Guaifenesin (Robitussin) 200 mg PO Q8H [facility] Haloperidol Lactate (Haldol) 0.25 mg IM Q12H PRN PRN Reason: Agitation Last Admin: 01/15/19 04:38 Dose: 0.25 mg Levothyroxine Sodium (Synthroid) 112 mcg PO DAILY@0630 [facility] Last Admin: 01/15/19 06:43 Dose: 112 mcg Memantine (Namenda) 5 mg PO HS [facility] Last Admin: 01/14/19 21:24 Dose: 5 mg Methylprednisolone (Solu-Medrol) 60 mg IV BID [facility] Last Admin: 01/15/19 09:04 Dose: 60 mg Metoprolol Succinate (Toprol Xl) 50 mg PO DAILY [facility] Last Admin: 01/15/19 09:03 Dose: 50 mg Pantoprazole Sodium (Protonix Ec Tab) 40 mg PO DAILY PRN PRN Reason: Heartburn Last Admin: 01/15/19 09:03 Dose: 40 mg Quetiapine Fumarate (Seroquel) 12.5 mg PO HS [facility] - Labs Labs: 01/15/19 05:20 01/15/19 05:20 - Constitutional Appears: Non-toxic, Confused, Chronically Ill - Eye Exam Eye Exam: EOMI, PERRL - ENT Exam ENT Exam: Mucous Membranes Moist - Respiratory Exam Respiratory Exam: Wheezes (B/L), NORMAL BREATHING PATTERN - Cardiovascular Exam Cardiovascular Exam: REGULAR RHYTHM, +S1, +S2. absent: Gallop - GI/Abdominal Exam GI & Abdominal Exam: Soft, Normal Bowel Sounds. absent: Tenderness - Neurological Exam Neurological Exam: Alert, Awake. absent: Oriented x3 Additional comments: Tremors - Psychiatric Exam Psychiatric exam: Agitated - Skin Skin Exam: Normal Color, Warm Assessment and Plan - Assessment and Plan (Free Text) Assessment: 83 y/o F with pmhx of dementia, hypercholesterolemia, COPD, unspecified, hypothyroidism, agitation & HTN admitted for COPD exacerbation. COPD exacerbation -Improved -CXR: possible right midlung finding, otherwise unremarkable, no pneumothroax or effusion -duoneb Q4 -Decrease methylprednisolone 40mg BID -Advair 100-50mg 1 puff BID -maintain POX 92% Agitation -possibly secondary to COPD exacerbation vs delirium -Still confused at times. -Psych consult appreciated and recs followed -Seroquel 25mg PO BID -TSH Slightly elevated normal T4 -Haldol 0.25 IM PRN for agitation -Avoid benzos HTN -controlled -metoprolol 50mg po QD -norvasc 5mg PO QD Hypothyroidism -c/w levothyroxine 112mcg QD Hypercholesterolemia -Atorvastain 20mg PO QD Dementia -memantine 5mg pO HS -Divalproex 125mg TID as per Psych -donepezil 10mg PO HS Prophylaxis -lovenox 40mg SC QD Diet -heart healthy Code Status -full code
[2019-01-15] MEDS: MethylPREDNISolone 40 mg Vial IV SCH (15:00)
[2019-01-15] MEDS: guaiFENesin 200 mg/10 ml Syrup UD PO SCH ×2 (17:27→21:48)
[2019-01-16] MEDS: MethylPREDNISolone 40 mg Vial IV SCH (00:45)
[2019-01-16] MEDS: guaiFENesin 200 mg/10 ml Syrup UD PO SCH ×3 (03:18→21:49)
[2019-01-16] MEDS: Albuterol-Ipratrop 3 mg / 0.5 (3 ml) UD INH SCH ×6 (05:00→23:55)
[2019-01-16 05:27] LABS: HEMOGLOBIN 13.4 g/dL (12.0-16.0); MEAN CELL VOLUME 83.9 fl (81.0-99.0); MEAN CORPUSCULAR HEMOGLOBIN 27.2 pg (27.0-31.0); MEAN CORPUSCULAR HGB CONC 32.4 g/dL (33.0-37.0); RBC 4.93 Mil/uL (3.80-5.20); RED CELL DISTRIBUTION WIDTH 14.8 % (11.5-14.5); WHITE BLOOD COUNT 14.8 K/uL (4.8-10.8)
[2019-01-16 05:35] LABS: BLOOD UREA NITROGEN 30 mg/dl (7-17); CALCIUM 9.4 mg/dL (8.4-10.2); GFR NON-AFRICAN AMERICAN > 60
[2019-01-16] MEDS: Levothyroxine 112 MCG TAB PO SCH (05:38)
[2019-01-16] MEDS: FLUTICASONE PROPION/SALMETEROL 55-14 INHALER IH SCH ×2 (08:26→21:48)
[2019-01-16] MEDS: Metoprolol Succinate 50 mg XL Tab PO SCH (08:27)
[2019-01-16] MEDS: Pantoprazole 40 mg EC Tab PO PRN (08:27)
[2019-01-16] MEDS: Divalproex 125 mg DR (BID formulation) PO SCH ×2 (08:27→12:24)
[2019-01-16] MEDS: Enoxaparin 40 mg Syringe SC SCH (08:28)
--- NOTE | 2019-01-16 12:59 | CP.PCM.PN ---
Subjective - Date & Time of Evaluation Date of Evaluation: 01/16/19 Time of Evaluation: 12:00 - Subjective Subjective: Seen at bedside. Afebrile. Agitated at times. Needed reorientation overnight. YEsterday became very agitated and needed a dose of 0.25 mg Haldol during the day. As per family patient was also becoming agitated/aggressive at home at time s. Patient calm at this time. Cough wet, SOB improved. Objective - Vital Signs/Intake and Output Vital Signs (last 24 hours): Temp Pulse Resp BP Pulse Ox 97.3 F L 80 23 136/75 93 L 01/16/19 12:03 01/16/19 12:03 01/16/19 12:03 01/16/19 12:03 01/16/19 12:03 - Medications Medications: Current Medications Albuterol/Ipratropium (Duoneb 3 Mg/0.5 Mg (3 Ml) Ud) 3 ml INH RQ4 [facility] Last Admin: 01/16/19 11:22 Dose: 3 ml Amlodipine Besylate (Norvasc) 5 mg PO DAILY [facility] Last Admin: 01/16/19 08:28 Dose: 5 mg Atorvastatin Calcium (Lipitor) 20 mg PO DAILY [facility] Last Admin: 01/16/19 08:27 Dose: 20 mg Divalproex Sodium (Depakote Dr(*Bid*)) 125 mg PO TID [facility] Last Admin: 01/16/19 08:27 Dose: 125 mg Donepezil HCl (Aricept) 10 mg PO [facility] Last Admin: 01/15/19 21:51 Dose: Not Given Enoxaparin Sodium (Lovenox) 40 mg SC DAILY [facility]; Protocol Last Admin: 01/16/19 08:28 Dose: 40 mg Guaifenesin (Robitussin) 200 mg PO Q8H [facility] Last Admin: 01/16/19 03:18 Dose: Not Given Haloperidol Lactate (Haldol) 0.25 mg IM Q12H PRN PRN Reason: Agitation Last Admin: 01/15/19 16:59 Dose: 0.25 mg Levothyroxine Sodium (Synthroid) 112 mcg PO DAILY@0630 [facility] Last Admin: 01/16/19 05:38 Dose: Not Given Memantine (Namenda) 5 mg PO [facility] Last Admin: 01/15/19 21:52 Dose: Not Given Metoprolol Succinate (Toprol Xl) 50 mg PO DAILY [facility] Last Admin: 01/16/19 08:27 Dose: 50 mg Pantoprazole Sodium (Protonix Ec Tab) 40 mg PO DAILY PRN PRN Reason: Heartburn Last Admin: 01/16/19 08:27 Dose: 40 mg Prednisone (Prednisone Tab) 40 mg PO DAILY [facility] Stop: 01/22/19 09:00 Quetiapine Fumarate (Seroquel) 12.5 mg PO HS [facility] Last Admin: 01/15/19 21:52 Dose: Not Given - Labs Labs: 01/16/19 04:30 01/16/19 04:30 - Constitutional Appears: Non-toxic, Confused - Eye Exam Eye Exam: EOMI, PERRL - ENT Exam ENT Exam: Mucous Membranes Moist - Respiratory Exam Respiratory Exam: NORMAL BREATHING PATTERN. absent: Decreased Breath Sounds, Rales, Respiratory Distress - Cardiovascular Exam Cardiovascular Exam: REGULAR RHYTHM, +S1, +S2 - GI/Abdominal Exam GI & Abdominal Exam: Soft, Normal Bowel Sounds - Neurological Exam Neurological Exam: Alert, Awake - Skin Skin Exam: Normal Color, Warm Assessment and Plan - Assessment and Plan (Free Text) Assessment: 83 y/o F with pmhx of dementia, hypercholesterolemia, COPD, unspecified, hypothyroidism, agitation & HTN admitted for COPD exacerbation. COPD exacerbation -Improved -CXR: possible right midlung finding, otherwise unremarkable, no pneumothroax or effusion -duoneb Q4 -Switch to PO prednisone(Patient clinically better and pulled out IV line) -Advair 100-50mg 1 puff BID -PT eval ordered Agitation -possibly secondary to COPD exacerbation vs delirium vs dementia -Confused. Agitated at times and aggressive -Case discussed with Psychiatrist, Dr Montenegro today. Dr Montenegro to review pt meds again today and will f/u recs -C/w Seroquel 25mg PO BID for now -TSH Slightly elevated normal T4 -Haldol 0.25 IM PRN for agitation -Avoid benzos HTN -controlled -metoprolol 50mg po QD -norvasc 5mg PO QD Hypothyroidism -c/w levothyroxine 112mcg QD Hypercholesterolemia -Atorvastain 20mg PO QD Dementia -memantine 5mg pO HS -Divalproex 125mg TID as per Psych -donepezil 10mg PO HS -F/U PT eval recs. Prophylaxis -lovenox 40mg SC QD Diet -heart healthy Code Status -full code
--- NOTE | 2019-01-16 16:05 | CP.PCM.CON ---
History of Present Illness - History of Present Illness History of Present Illness: follow up consult pt is an 83 y/o F with pmhx of dementia, hypercholesterolemia, COPD,, brought to ER for episode of difficulty breathing pt reportedly has been increasingly agitated, combative with care , possible delirium due to change of environment and also due to medical condition interviewed pt who minimally respnds to questionas and also case discussed with daughter in law according to staff members and daughter in law , pt has been less agitated with increase in dose of depakote , but continues to have episodes of sundowning where she gets irritable and attempts to wander , discussed possible increasing dose of depakote, also advised daughter in law that pt at current mental status has major neurocognitive disorder and needs 24/7 care , educated her about risk of wandering and risk of possible having stove on advised that family should pursue legal guardianship in case that future placement is needed Past Patient History - Infectious Disease Hx of Infectious Diseases: None - Tetanus Immunizations Tetanus Immunization: Unknown - Past Medical History & Family History Past Medical History?: Yes - Past Social History Smoking Status: Unknown If Ever Smoked - CARDIAC Hx Cardiac Disorders: Yes Hx Atrial Fibrillation: No Hx Cardia Arrhythmia: No Hx Congestive Heart Failure: No Hx Hypercholesterolemia: Yes Hx Hypertension: Yes Hx Mitral Valve Prolapse: No Hx Pacemaker: No Hx Peripheral Edema: No - PULMONARY Hx Respiratory Disorders: Yes Hx Asthma: Yes Hx Bronchitis: Yes Hx Pneumonia: Yes - NEUROLOGICAL Hx Neurological Disorder: Yes Hx Dementia: Yes Hx Parkinson's Disease: Yes - HEENT Hx HEENT Problems: No - RENAL Hx Chronic Kidney Disease: No - ENDOCRINE/METABOLIC Hx Endocrine Disorders: Yes Hx Hypothyroidism: Yes - HEMATOLOGICAL/ONCOLOGICAL Hx Blood Disorders: No Hx Human Immunodeficiency Virus (HIV): No - INTEGUMENTARY Hx Dermatological Problems: No - MUSCULOSKELETAL/RHEUMATOLOGICAL Hx Musculoskeletal Disorders: No Hx Falls: No - GASTROINTESTINAL Hx Gastrointestinal Disorders: No - GENITOURINARY/GYNECOLOGICAL Hx Genitourinary Disorders: No - PSYCHIATRIC Hx Psychophysiologic Disorder: Yes Hx Depression: Yes Hx Substance Use: No - SURGICAL HISTORY Hx Surgeries: Yes Hx Tubal Ligation: Yes - ANESTHESIA Hx Anesthesia: Yes Hx Anesthesia Reactions: No Hx Malignant Hyperthermia: No Meds Allergies/Adverse Reactions: Allergies Allergy/AdvReac Type Severity Reaction Status Date / Time No Known Allergies Allergy Verified 01/13/19 13:44 - Medications Medications: Current Medications Albuterol/Ipratropium (Duoneb 3 Mg/0.5 Mg (3 Ml) Ud) 3 ml INH RQ4 [facility] Last Admin: 01/16/19 11:22 Dose: 3 ml Amlodipine Besylate (Norvasc) 5 mg PO DAILY [facility] Last Admin: 01/16/19 08:28 Dose: 5 mg Atorvastatin Calcium (Lipitor) 20 mg PO DAILY [facility] Last Admin: 01/16/19 08:27 Dose: 20 mg Divalproex Sodium (Depakote Dr(*Bid*)) 125 mg PO TID [facility] Last Admin: 01/16/19 12:24 Dose: Not Given Donepezil HCl (Aricept) 10 mg PO HS [facility] Last Admin: 01/15/19 21:51 Dose: Not Given Enoxaparin Sodium (Lovenox) 40 mg SC DAILY [facility]; Protocol Last Admin: 01/16/19 08:28 Dose: 40 mg Guaifenesin (Robitussin) 200 mg PO Q8H [facility] Last Admin: 01/16/19 12:15 Dose: Not Given Haloperidol Lactate (Haldol) 0.25 mg IM Q12H PRN PRN Reason: Agitation Last Admin: 01/15/19 16:59 Dose: 0.25 mg Levothyroxine Sodium (Synthroid) 112 mcg PO DAILY@0630 [facility] Last Admin: 01/16/19 05:38 Dose: Not Given Memantine (Namenda) 5 mg PO HS [facility] Last Admin: 01/15/19 21:52 Dose: Not Given Metoprolol Succinate (Toprol Xl) 50 mg PO DAILY [facility] Last Admin: 01/16/19 08:27 Dose: 50 mg Pantoprazole Sodium (Protonix Ec Tab) 40 mg PO DAILY PRN PRN Reason: Heartburn Last Admin: 01/16/19 08:27 Dose: 40 mg Prednisone (Prednisone Tab) 40 mg PO DAILY [facility] Stop: 01/22/19 09:00 Quetiapine Fumarate (Seroquel) 12.5 mg PO HS [facility] Last Admin: 01/15/19 21:52 Dose: Not Given Results - Vital Signs Recent Vital Signs: Last Vital Signs Temp 98.4 F 01/16/19 15:52 Pulse 68 01/16/19 15:52 Resp 18 01/16/19 15:52 BP 126/65 01/16/19 15:52 Pulse Ox 95 04/18/19 15:52 - Labs Result Diagrams: 01/16/19 04:30 01/16/19 04:30 Labs: Laboratory Results - last 24 hr 01/16/19 01/16/19 04:30 04:30 WBC 14.8 H RBC 4.93 Hgb 13.4 Hct 41.4 MCV 83.9 MCH 27.2 MCHC 32.4 L RDW 14.8 H Plt Count 313 Sodium 138 Potassium 4.4 Chloride 102 Carbon Dioxide 27 Anion Gap 13 BUN 30 H Creatinine 0.8 Est GFR ( Amer) > 60 Est GFR (Non-Af Amer) > 60 Random Glucose 136 H Calcium 9.4 Vitamin B12 522 Assessment & Plan - Assessment and Plan (Free Text) Assessment: major neurocognitive disorder with behavioral disturbances Plan: recommend increase depakote to 250mg tid continue with seroquel 25mg qhs pt cleared psychiatrically for discharge upon medical clearance based on the following 1. pt at current mental status needs arrangement for 24/7 care as pt has major neurocognitive deficits and risk of wandering and would be risk for self 2. rn social services would need to meet with family and discusss available options for home care services 3. pt will need arrangement for psychiatric follow up for management of psychotropics
[2019-01-17] MEDS: guaiFENesin 200 mg/10 ml Syrup UD PO SCH ×3 (04:30→21:33)
[2019-01-17] MEDS: Albuterol-Ipratrop 3 mg / 0.5 (3 ml) UD INH SCH ×6 (05:00→23:54)
[2019-01-17 05:20] LABS: BASO % 0.2 % (0.0-2.0); EOS # 0.1 K/uL (0.0-0.7); HEMOGLOBIN 13.1 g/dL (12.0-16.0); LYMPH # 1.9 K/uL (1.0-4.3); LYMPH % 23.2 % (20.0-40.0); MEAN CORPUSCULAR HEMOGLOBIN 26.9 pg (27.0-31.0); MEAN PLATELET VOLUME 7.4 fl (7.2-11.7); MONO # 0.6 K/uL (0.0-0.8); MONO % 7.5 % (0.0-10.0); NEUT # 5.7 K/uL (1.8-7.0); NEUT % 68.1 % (50.0-75.0); NRBC % 0.1 % (0.0-0.0); RBC 4.88 Mil/uL (3.80-5.20); RED CELL DISTRIBUTION WIDTH 14.7 % (11.5-14.5); WHITE BLOOD COUNT 8.3 K/uL (4.8-10.8)
[2019-01-17] MEDS: Levothyroxine 112 MCG TAB PO SCH (06:36)
[2019-01-17] MEDS: Divalproex 250 mg DR(BID formulation) PO SCH ×4 (10:00→17:19)
[2019-01-17] MEDS: FLUTICASONE PROPION/SALMETEROL 55-14 INHALER IH SCH ×3 (10:03→21:32)
[2019-01-17] MEDS: Enoxaparin 40 mg Syringe SC SCH (10:04)
[2019-01-17] MEDS: Metoprolol Succinate 50 mg XL Tab PO SCH (10:07)
--- NOTE | 2019-01-17 14:19 | CP.PCM.PN ---
Subjective - Date & Time of Evaluation Date of Evaluation: 01/17/19 Time of Evaluation: 12:00 - Subjective Subjective: Seen at bedside in not acute distress. Family member in room. Denies pain. SOB significantly improved. Still sporadic wet cough present. Afebrile. No acute changes in urination or stools. Confused and agitated at times. Objective - Vital Signs/Intake and Output Vital Signs (last 24 hours): Temp Pulse Resp BP Pulse Ox 97.4 F L 90 20 109/70 94 L 01/17/19 11:37 01/17/19 11:37 01/17/19 11:37 01/17/19 11:37 01/17/19 11:37 - Medications Medications: Current Medications Acetaminophen (Tylenol 325mg Tab) 650 mg PO Q6 PRN PRN Reason: Headache Last Admin: 01/17/19 12:32 Dose: 650 mg Albuterol/Ipratropium (Duoneb 3 Mg/0.5 Mg (3 Ml) Ud) 3 ml INH RQ4 [facility] Last Admin: 01/17/19 11:37 Dose: 3 ml Amlodipine Besylate (Norvasc) 5 mg PO DAILY [facility] Last Admin: 01/17/19 10:05 Dose: 5 mg Atorvastatin Calcium (Lipitor) 20 mg PO DAILY [facility] Last Admin: 01/17/19 10:04 Dose: 20 mg Divalproex Sodium (Depakote Dr(*Bid*)) 250 mg PO TID [facility] Last Admin: 01/17/19 12:31 Dose: 250 mg Donepezil HCl (Aricept) 10 mg PO HS [facility] Last Admin: 01/16/19 21:48 Dose: Not Given Enoxaparin Sodium (Lovenox) 40 mg SC DAILY [facility]; Protocol Last Admin: 01/17/19 10:04 Dose: 40 mg Guaifenesin (Robitussin) 200 mg PO Q8H [facility] Last Admin: 01/17/19 12:31 Dose: 200 mg Levothyroxine Sodium (Synthroid) 112 mcg PO DAILY@0630 [facility] Last Admin: 01/17/19 06:36 Dose: Not Given Memantine (Namenda) 5 mg PO HS [facility] Last Admin: 01/16/19 21:51 Dose: 5 mg Metoprolol Succinate (Toprol Xl) 50 mg PO DAILY [facility] Last Admin: 01/17/19 10:07 Dose: 50 mg Pantoprazole Sodium (Protonix Ec Tab) 40 mg PO DAILY PRN PRN Reason: Heartburn Last Admin: 01/16/19 08:27 Dose: 40 mg Prednisone (Prednisone Tab) 40 mg PO DAILY [facility] Stop: 01/22/19 09:00 Last Admin: 01/17/19 10:06 Dose: 40 mg Quetiapine Fumarate (Seroquel) 12.5 mg PO HS [facility] Last Admin: 01/16/19 21:50 Dose: 12.5 mg - Labs Labs: 01/17/19 04:40 01/16/19 04:30 - Constitutional Appears: Non-toxic - Eye Exam Eye Exam: EOMI, PERRL - ENT Exam ENT Exam: Mucous Membranes Moist - Respiratory Exam Respiratory Exam: Clear to Ausculation Bilateral, NORMAL BREATHING PATTERN - Cardiovascular Exam Cardiovascular Exam: REGULAR RHYTHM. absent: Gallop - GI/Abdominal Exam GI & Abdominal Exam: Soft, Normal Bowel Sounds - Extremities Exam Extremities Exam: absent: Calf Tenderness, Pedal Edema - Neurological Exam Neurological Exam: Alert, Awake. absent: Normal Gait, Oriented x3 - Skin Skin Exam: Normal Color, Warm Assessment and Plan - Assessment and Plan (Free Text) Assessment: 83 y/o F with pmhx of dementia, hypercholesterolemia, COPD, unspecified, hypothyroidism, agitation & HTN admitted for COPD exacerbation. COPD exacerbation -Improved -duoneb Q4 -c/w PO prednisone PO -Advair 100-50mg 1 puff BID Agitation -possibly secondary to delirium vs dementia or both -Confused. Agitated at times and aggressive -Depakote increased to 250 TID -C/w Seroquel 25mg PO BID for now HTN -controlled -metoprolol 50mg po QD -norvasc 5mg PO QD Hypothyroidism -c/w levothyroxine 112mcg QD Hypercholesterolemia -Atorvastain 20mg PO QD Dementia -memantine 5mg pO HS -Divalproex 125mg TID as per Psych -donepezil 10mg PO HS -Patient possible to be transferred to [facility] tomorrow PM as per SW. Prophylaxis -lovenox 40mg SC QD
[2019-01-18] MEDS: Albuterol-Ipratrop 3 mg / 0.5 (3 ml) UD INH SCH ×4 (04:32→15:00)
[2019-01-18] MEDS: guaiFENesin 200 mg/10 ml Syrup UD PO SCH ×2 (04:48→13:15)
[2019-01-18] MEDS: Levothyroxine 112 MCG TAB PO SCH (05:41)
--- NOTE | 2019-01-18 08:20 | CP.PCM.DIS ---
<CorwinChad - Last Filed: 01/18/19 10:08> Provider - Provider Date of Admission: 01/15/19 10:36 Attending physician: Isaias Oscar MD Primary care physician: Isaias Oscar MD Consults: 01/13/19 17:21 Psychiatry Consult Routine Comment: Consulting Provider: Olegario Montenegro Consulting Physician: Olegario Montenegro Reason for Consult: worsening anxiety/dementia Time Spent in preparation of Discharge (in minutes): 40 Diagnosis - Discharge Diagnosis (1) COPD (chronic obstructive pulmonary disease) Status: Chronic (2) Dementia Status: Chronic Priority: Medium (3) Delirium Status: Resolved Hospital Course - Lab Results Lab Results: Most Recent Lab Values WBC 8.3 K/uL (4.8-10.8) 01/17/19 04:40 RBC 4.88 Mil/uL (3.80-5.20) 01/17/19 04:40 Hgb 13.1 g/dL (12.0-16.0) 01/17/19 04:40 Hct 41.0 % (34.0-47.0) 01/17/19 04:40 MCV 84.0 fl (81.0-99.0) 01/17/19 04:40 MCH 26.9 pg (27.0-31.0) L 01/17/19 04:40 MCHC 32.0 g/dL (33.0-37.0) L 01/17/19 04:40 RDW 14.7 % (11.5-14.5) H 01/17/19 04:40 Plt Count 290 K/uL (130-400) 01/17/19 04:40 MPV 7.4 fl (7.2-11.7) 01/17/19 04:40 Neut % (Auto) 68.1 % (50.0-75.0) 01/17/19 04:40 Lymph % (Auto) 23.2 % (20.0-40.0) 01/17/19 04:40 [place] % (Auto) 7.5 % (0.0-10.0) 01/17/19 04:40 Eos % (Auto) 1.0 % (0.0-4.0) 01/17/19 04:40 Baso % (Auto) 0.2 % (0.0-2.0) 01/17/19 04:40 Neut # (Auto) 5.7 K/uL (1.8-7.0) 01/17/19 04:40 Lymph # (Auto) 1.9 K/uL (1.0-4.3) 01/17/19 04:40 [place] # (Auto) 0.6 K/uL (0.0-0.8) 01/17/19 04:40 Eos # (Auto) 0.1 K/uL (0.0-0.7) 01/17/19 04:40 Baso # (Auto) 0.0 K/uL (0.0-0.2) 01/17/19 04:40 Neutrophils % (Manual) 86 % (42-75) H 01/14/19 14:35 Band Neutrophils % 3 % (0-2) H 01/14/19 14:35 Lymphocytes % (Manual) 7 % (20-50) L 01/14/19 14:35 Monocytes % (Manual) 4 % (0-10) 01/14/19 14:35 Eosinophils % (Manual) 3 % (0-7) 01/13/19 15:35 Toxic Granulation Present 01/13/19 15:35 Platelet Estimate Normal (NORMAL) 01/14/19 14:35 Hypochromasia (manual) Slight 01/14/19 14:35 Anisocytosis (manual) Slight 01/14/19 14:35 Microcytosis (manual) Slight 01/14/19 14:35 Sodium 138 mmol/l (132-148) 01/16/19 04:30 Potassium 4.4 MMOL/L (3.6-5.0) 01/16/19 04:30 Chloride 102 mmol/L (98-107) 01/16/19 04:30 Carbon Dioxide 27 mmol/L (22-30) 01/16/19 04:30 Anion Gap 13 (10-20) 01/16/19 04:30 BUN 30 mg/dl (7-17) H 01/16/19 04:30 Creatinine 0.8 mg/dl (0.7-1.2) 01/16/19 04:30 Est GFR ( Amer) > 60 01/16/19 04:30 Est GFR (Non-Af Amer) > 60 01/16/19 04:30 Random Glucose 136 mg/dL (65-105) H 01/16/19 04:30 Calcium 9.4 mg/dL (8.4-10.2) 01/16/19 04:30 Total Bilirubin 0.6 mg/dl (0.2-1.3) 01/15/19 05:20 AST 26 U/L (14-36) 01/15/19 05:20 ALT 13 U/L (9-52) 01/15/19 05:20 Alkaline Phosphatase 81 U/L (38-126) 01/15/19 05:20 Troponin I < 0.0120 ng/mL (0.00-0.120) 01/14/19 14:35 Total Protein 7.7 G/DL (6.3-8.2) 01/15/19 05:20 Albumin 4.2 g/dL (3.5-5.0) 01/15/19 05:20 Globulin 3.5 gm/dL (2.2-3.9) 01/15/19 05:20 Albumin/Globulin Ratio 1.2 (1.0-2.1) 01/15/19 05:20 Vitamin B12 522 pg/mL (239-931) 01/16/19 04:30 Free T4 1.22 ng/dL (0.78-2.19) 01/14/19 14:35 TSH 3rd Generation 5.12 mIU/ML (0.46-4.68) H 01/14/19 14:35 RPR Nonreactive (NONREACTIVE) 01/16/19 04:30 - Hospital Course Hospital Course: 83 y/o with Dementia and COPD, admitted to hosp for COPD exacerbation, while in the hosp patient developed worsening mental status from her baseline. Psychiatry was consulted and meds were readjusted. Patient improved steadily of her COPD with IV steroids and nebs. Today patient is medically and psychiatrically stable to be discharged. As per family request and due to concerns about patient's safety since she lives alone she is to be transferred to [facility] this afternoon for continuing care. Discharge Exam - Head Exam Head Exam: ATRAUMATIC - Eye Exam Eye Exam: EOMI, PERRL - ENT Exam ENT Exam: Mucous Membranes Moist - Respiratory Exam Respiratory Exam: Clear to PA & Lateral, NORMAL BREATHING PATTERN, UNREMARKABLE - Cardiovascular Exam Cardiovascular Exam: REGULAR RHYTHM, +S1, +S2. absent: Gallop - GI/Abdominal Exam GI & Abdominal Exam: Normal Bowel Sounds, Unremarkable - Neurological Exam Neurological exam: Alert Additional comments: Confused. Not agitated - Skin Skin Exam: Normal Color, Warm Discharge Plan - Discharge Medications Prescriptions: Albuterol 0.083% [Albuterol 0.083% Inhal Nely (2.5 mg/3 ml) UD] 3 ml IH Q6 PRN 30 Days #1 neb PRN Reason: Shortness Of Breath Divalproex [Depakote DR(*BID*)] 250 mg PO TID #90 tcp guaiFENesin [Robitussin] 200 mg PO Q8H #30 udc - Follow Up Plan Condition: STABLE Disposition: TRANSF TO SNF Patient education suggested?: Yes Instructions: Pneumonia, Adult (DC), Exacerbation of COPD (DC) Referrals: Isaias Oscar MD [Staff Provider] - <Comfort Thomas - Last Filed: 01/20/19 12:26> Provider - Provider Date of Admission: 01/15/19 10:36 Attending physician: Isaias Oscar MD Consults: 01/13/19 17:21 Psychiatry Consult Routine Comment: Consulting Provider: Olegario Montenegro Consulting Physician: Olegario Montenegro Reason for Consult: worsening anxiety/dementia Hospital Course - Lab Results Lab Results: Most Recent Lab Values WBC 8.3 K/uL (4.8-10.8) 01/17/19 04:40 RBC 4.88 Mil/uL (3.80-5.20) 01/17/19 04:40 Hgb 13.1 g/dL (12.0-16.0) 01/17/19 04:40 Hct 41.0 % (34.0-47.0) 01/17/19 04:40 MCV 84.0 fl (81.0-99.0) 01/17/19 04:40 MCH 26.9 pg (27.0-31.0) L 01/17/19 04:40 MCHC 32.0 g/dL (33.0-37.0) L 01/17/19 04:40 RDW 14.7 % (11.5-14.5) H 01/17/19 04:40 Plt Count 290 K/uL (130-400) 01/17/19 04:40 MPV 7.4 fl (7.2-11.7) 01/17/19 04:40 Neut % (Auto) 68.1 % (50.0-75.0) 01/17/19 04:40 Lymph % (Auto) 23.2 % (20.0-40.0) 01/17/19 04:40 [place] % (Auto) 7.5 % (0.0-10.0) 01/17/19 04:40 Eos % (Auto) 1.0 % (0.0-4.0) 01/17/19 04:40 Baso % (Auto) 0.2 % (0.0-2.0) 01/17/19 04:40 Neut # (Auto) 5.7 K/uL (1.8-7.0) 01/17/19 04:40 Lymph # (Auto) 1.9 K/uL (1.0-4.3) 01/17/19 04:40 [place] # (Auto) 0.6 K/uL (0.0-0.8) 01/17/19 04:40 Eos # (Auto) 0.1 K/uL (0.0-0.7) 01/17/19 04:40 Baso # (Auto) 0.0 K/uL (0.0-0.2) 01/17/19 04:40 Neutrophils % (Manual) 86 % (42-75) H 01/14/19 14:35 Band Neutrophils % 3 % (0-2) H 01/14/19 14:35 Lymphocytes % (Manual) 7 % (20-50) L 01/14/19 14:35 Monocytes % (Manual) 4 % (0-10) 01/14/19 14:35 Eosinophils % (Manual) 3 % (0-7) 01/13/19 15:35 Toxic Granulation Present 01/13/19 15:35 Platelet Estimate Normal (NORMAL) 01/14/19 14:35 Hypochromasia (manual) Slight 01/14/19 14:35 Anisocytosis (manual) Slight 01/14/19 14:35 Microcytosis (manual) Slight 01/14/19 14:35 Sodium 138 mmol/l (132-148) 01/16/19 04:30 Potassium 4.4 MMOL/L (3.6-5.0) 01/16/19 04:30 Chloride 102 mmol/L (98-107) 01/16/19 04:30 Carbon Dioxide 27 mmol/L (22-30) 01/16/19 04:30 Anion Gap 13 (10-20) 01/16/19 04:30 BUN 30 mg/dl (7-17) H 01/16/19 04:30 Creatinine 0.8 mg/dl (0.7-1.2) 01/16/19 04:30 Est GFR ( Amer) > 60 01/16/19 04:30 Est GFR (Non-Af Amer) > 60 01/16/19 04:30 Random Glucose 136 mg/dL (65-105) H 01/16/19 04:30 Calcium 9.4 mg/dL (8.4-10.2) 01/16/19 04:30 Total Bilirubin 0.6 mg/dl (0.2-1.3) 01/15/19 05:20 AST 26 U/L (14-36) 01/15/19 05:20 ALT 13 U/L (9-52) 01/15/19 05:20 Alkaline Phosphatase 81 U/L (38-126) 01/15/19 05:20 Troponin I < 0.0120 ng/mL (0.00-0.120) 01/14/19 14:35 Total Protein 7.7 G/DL (6.3-8.2) 01/15/19 05:20 Albumin 4.2 g/dL (3.5-5.0) 01/15/19 05:20 Globulin 3.5 gm/dL (2.2-3.9) 01/15/19 05:20 Albumin/Globulin Ratio 1.2 (1.0-2.1) 01/15/19 05:20 Vitamin B12 522 pg/mL (239-931) 01/16/19 04:30 Free T4 1.22 ng/dL (0.78-2.19) 01/14/19 14:35 TSH 3rd Generation 5.12 mIU/ML (0.46-4.68) H 01/14/19 14:35 RPR Nonreactive (NONREACTIVE) 01/16/19 04:30 Attending/Attestation - Attestation I have personally seen and examined this patient.: Yes I have fully participated in the care of the patient.: Yes I have reviewed all pertinent clinical information, including history, physical exam and plan: Yes Notes (Text): 01/20/19 12:24 agree with findings and plan as above copd improved, patient at baseline for close follow up with pcp hd stable, nad.
[2019-01-18 08:49] VITALS: BP 158/79; PULSE 64; RESP 20; O2SAT 96
[2019-01-18] MEDS: FLUTICASONE PROPION/SALMETEROL 55-14 INHALER IH SCH (09:29)
[2019-01-18] MEDS: Enoxaparin 40 mg Syringe SC SCH (09:29)
[2019-01-18] MEDS: Metoprolol Succinate 50 mg XL Tab PO SCH (09:31)
[2019-01-18] MEDS: Divalproex 250 mg DR(BID formulation) PO SCH ×3 (09:32→16:26)
[2019-01-18 11:24] VITALS: TEMP 64
== END 2019-01-18 17:40 | DRG 191 ==
LOC: H.ER 13:40 → H.ERHOLD 15:37 → H.TEL 22:42 → OBSVTOIN 01-15 10:36 → H.TEL 01-15 16:36
PROVIDERS: ADMIT Family Medicine; ATTEND Family Medicine
PROC: 3E0F7GC Introduction of Other Therapeutic Substance into Respiratory Tract, Via Natural or Artificial Opening (ICD-10-PCS; principal; 2019-01-13)
DX: J44.1 Chronic obstructive pulmonary disease with (acute) exacerbation (principal); F01.51 Vascular dementia, unspecified severity, with behavioral disturbance; F05 Delirium due to known physiological condition; E03.9 Hypothyroidism, unspecified; E78.00 Pure hypercholesterolemia, unspecified; G20 Parkinson's disease; I10 Essential (primary) hypertension; Z87.01 Personal history of pneumonia (recurrent); F32.9 Major depressive disorder, single episode, unspecified; Z79.899 Other long term (current) drug therapy